=== PATIENT | female | born 1975 | race African-American/Black ===

== ENCOUNTER 2025-04-03 14:23 | Emergency (ER) | payer BC, MEDICAID ==
[~2025-04-03] VITALS: Ht 167.6 cm; Wt 77.0 kg
[2025-04-03 14:32] VITALS: O2SAT 100
[2025-04-03 16:06] VITALS: BP 132/80; PULSE 75; RESP 18; TEMP 36.9; O2SAT 100
== END 2025-04-03 16:02 | disposition home or self-care (01) ==
LOC: ER 14:23
DX: S60.352A Superficial foreign body of left thumb, initial encounter (principal); X58.XXXA Exposure to other specified factors, initial encounter; Y93.89 Activity, other specified; Y92.89 Other specified places as the place of occurrence of the external cause; Y99.8 Other external cause status
CPT/HCPCS: 99282